=== PATIENT | male | born 2000 | race Caucasian/White ===

== ENCOUNTER 2024-01-30 11:58 | Emergency (ER) | payer OTHER ==
[~2024-01-30] VITALS: Ht 172.7 cm; Wt 85.3 kg
[2024-01-30 12:08] VITALS: BP 141/89; PULSE 75; RESP 16; TEMP 98.6; O2SAT 100
[2024-01-30] MEDS: dexamethasone sod phosphate 10mg/ml inj IM STA (13:39)
== END 2024-01-30 13:42 | disposition home or self-care (01) ==
LOC: ER 11:58
DX: J30.2 Other seasonal allergic rhinitis (principal)
CPT/HCPCS: 96372; 99283; J1100